=== PATIENT | male | born 1980 | race Two or more races ===

== ENCOUNTER 2025-03-07 13:29 | Inpatient (IN) | payer OTHER ==
[2025-03-07 13:59] VITALS: BMI 25.8
[2025-03-07] MEDS ORDERED: MAG HYDROX/AL HYDROX/SIMETH 30 ML UNIT-DOSE CUP PO PRN (14:22)
[2025-03-07] MEDS ORDERED: LOPERAMIDE HCL 2 MG CAPSULE PO PRN (14:22)
[2025-03-07] MEDS ORDERED: guaiFENesin 600 MG TABLET.ER (FP) PO PRN (14:22)
[2025-03-07] MEDS ORDERED: BENZOCAINE/MENTHOL (CHLORASEPTIC ) LOZENGE MM PRN (14:22)
[2025-03-07] MEDS ORDERED: IBUPROFEN 400 MG TABLET (FP) PO PRN (14:22)
[2025-03-07] MEDS ORDERED: MAGNESIUM HYDROX 2400MG/30ML ORAL SUSPENSION 30 ML CUP PO PRN (14:22)
[2025-03-07] MEDS ORDERED: POLYETHYLENE GLYCOL (HEALTHYLAX) 3350 17 GM PACKET PO PRN (14:22)
[2025-03-07] MEDS ORDERED: BENZONATATE 200 MG CAPSULE PO PRN (14:22)
[2025-03-07] MEDS ORDERED: NALOXONE (NARCAN) HCL 4 MG/0.1 ML SPRAY NS PRN (14:22)
[2025-03-07] MEDS: LIDOCAINE 5% TOPICAL PATCH TP SCH (16:07)
[2025-03-07] MEDS: PRENATAL VITAMINS W/ FOLIC ACID TABLET (FP) PO SCH (16:07)
[2025-03-07] MEDS: NICOTINE 14 MG/24 HOURS TOPICAL PATCH TD SCH (16:07)
[2025-03-07] MEDS: IBUPROFEN 600 MG TABLET (FP) PO PRN (16:40)
[2025-03-07] MEDS: TUBERCULIN PPD 5 TU/0.1ML VIAL ID ONE (17:46)
[2025-03-07] MEDS ORDERED: TUBERCULIN PPD 5 TU/0.1ML VIAL ID ONE (17:49)
[2025-03-07] MEDS: THIAMINE 100 MG TABLET PO SCH (21:02)
[2025-03-07] MEDS: MELATONIN 5 MG TABLETS PO SCH (21:03)
[2025-03-07] MEDS: LIDOCAINE PATCH REMOVAL MC SCH (21:03)
[2025-03-07] MEDS: ACETAMINOPHEN 325 MG TABLET (FP) PO PRN (21:04)
[2025-03-08] MEDS: TOPIRAMATE 25 MG TABLET PO SCH (10:03)
[2025-03-08 11:50] LABS: HEMATOCRIT 46.6 % (40.1-51.0); HEMOGLOBIN 14.5 g/dL (13.7-17.5); MCHC 31.1 g/dl (32.3-36.5); MEAN CELL VOLUME 86.8 fl (79.0-92.2); MEAN PLT VOLUME 10.3 fl (9.4-12.4); PLATELET COUNT 346 x10^3/uL (163-337); RDW 13.3 % (12.1-15.9)
[2025-03-08 12:07] LABS: CHLORIDE 105 mmol/L (98-107); POTASSIUM 3.8 mmol/L (3.5-5.1); SODIUM 141 mmol/L (136-145)
[2025-03-08 12:22] LABS: CALCIUM 10.1 mg/dL (8.5-10.1)
[2025-03-08 12:23] LABS: ANION GAP 11 mmol/L (4-13); BLOOD UREA NITROGEN 15.1 mg/dL (7-18); CO2 25 mmol/L (21-32); GLUCOSE,RANDOM 85 mg/dL (74-106)
[2025-03-08 12:26] LABS: CREATININE 0.9 mg/dL (0.55-1.3); SGOT/AST 12 U/L (15-37); SGPT/ALT 26 U/L (13-61)
[2025-03-08 12:28] LABS: BILIRUBIN,TOTAL 0.7 mg/dL (0.2-1); TOT PROT 7.2 g/dl (6.4-8.2)
[2025-03-08 12:29] LABS: ALK PHOS 94 U/L (45-117)
[2025-03-08 12:35] LABS: SYPHILIS W/ RPR CONF NON-REACTIVE (NONREACTIVE)
[2025-03-08 13:02] LABS: HIV INTERPRETATION NEGATIVE (NEGATIVE)
[2025-03-08 13:04] LABS: HCV DIAGNOSTIC IN-HOUSE W/RFLX NON-REACTIVE (NONREACTIVE)
[2025-03-08 14:59] LABS: PH,URINE 6.5 (5.0-8.0); URINE APPEARANCE CLEAR; URINE BILIRUBIN NEGATIVE (NEGATIVE); URINE COLOR YELLOW; URINE GLUCOSE (UA) NEGATIVE (NEGATIVE); URINE KETONE NEGATIVE (NEGATIVE); URINE LEUK ESTERASE NEGATIVE (NEGATIVE); URINE NITRITE NEGATIVE (NEGATIVE); URINE PROTEIN NEGATIVE (NEGATIVE); URINE UROBILINOGEN 0.2 mg/dL (0.2-1.0)
[2025-03-08] MEDS: LIDOCAINE 5% TOPICAL PATCH TP SCH (16:37)
[2025-03-08] MEDS: MELATONIN 5 MG TABLETS PO SCH (21:28)
[2025-03-08] MEDS: MIRTAZAPINE 15 MG TABLET (FP) PO SCH (21:28)
[2025-03-08] MEDS: LIDOCAINE PATCH REMOVAL MC SCH (21:29)
[2025-03-08] MEDS: BACLOFEN 10 MG TABLET (FP) PO SCH (21:29)
[2025-03-09] MEDS: LIDOCAINE 5% TOPICAL PATCH TP SCH (10:27)
[2025-03-11] MEDS ORDERED: NICOTINE POLACRILEX 4 MG LOZENGE BC PRN (10:09)
[2025-03-11] MEDS: NICOTINE POLACRILEX 4 MG GUM BUC PRN (11:07)
[2025-03-12] MEDS: hydrOXYzine PAMOATE 25 MG CAPSULE (FP) PO PRN (14:02)
[2025-03-30 06:02] VITALS: RESP 16
[2025-04-01 05:42] VITALS: TEMP 97.1
[2025-04-03 05:32] VITALS: PULSE 63
[2025-04-04 05:51] VITALS: BP 138/84
== END 2025-04-04 10:07 | disposition home or self-care (01) | DRG 772 ==
LOC: YASAS 13:29 → Y3W 15:08
PROVIDERS: ADMIT Psychiatry & Neurology Pain Medicine; ATTEND Psychiatry & Neurology Pain Medicine
PROC: HZ42ZZZ Group Counseling for Substance Abuse Treatment, Cognitive-Behavioral (ICD-10-PCS; principal; 2025-03-07)
DX: F14.20 Cocaine dependence, uncomplicated (principal); F17.210 Nicotine dependence, cigarettes, uncomplicated; H81.10 Benign paroxysmal vertigo, unspecified ear; M19.90 Unspecified osteoarthritis, unspecified site; M54.50 Low back pain, unspecified; G89.29 Other chronic pain; Z59.00 Homelessness unspecified
CPT/HCPCS: 36415; 80053; 80305; 80307; 81003; 85027; 86780; 86803; 87389; 87811; 93005; 93010; J0475